=== PATIENT | male | born 1970 | race Caucasian/White ===

== ENCOUNTER 2016-07-13 00:53 | Emergency (ER) | payer BC ==
[~2016-07-13] VITALS: Ht 185.4 cm; Wt 111.1 kg
[~2016-07-13 00:53] MED LIST: LANS30CA10 PO
[2016-07-13 00:59] VITALS: BP 157/93; PULSE 91; RESP 14; TEMP 97.8; O2SAT 97
--- NOTE | 2016-07-13 01:04 | NUR ---
Patient to ER bed 6 to gown for evaluation. Side rails up. Report given to ZANDER WALKER.
--- NOTE | 2016-07-13 01:09 | NUR ---
Patient to ER C/O elevated BP at home. Patient states that in the past 2 days he has been checking his BP and is been high in the 170's SBP. Patient had monday lisinopril changed from QD to BID. Today patient to ER stating that his SBP was high. Denies pain, denies N/V/D/C, mild dizziness. AAOx4, unlabored breathing, no signs of acute distress.
--- NOTE | 2016-07-13 01:11 | NUR ---
ER MD Zhang at bedside for evaluation
--- NOTE | 2016-07-13 01:20 | NUR ---
# 20 gauge angiocath placed to left hand. Use of asceptic technique. Opsite placed over site. Blood return noted. Blood for lab drawn from site. Flushed with 10 cc of normal saline. No evidence of infiltration noted. Patient tolerated well.
[2016-07-13 01:34] LABS: BILIRUBIN,URINE NEGATIVE (NEGATIVE); BLOOD, URINE NEGATIVE (NEGATIVE); CLARITY/URINE CLEAR (CLEAR); COLOR,URINE YELLOW (YELLOW); GLUCOSE,URINE NEGATIVE (NEGATIVE); KETONES,URINE NEGATIVE (NEGATIVE); LEUKOCYTE ESTERASE ,URINE NEGATIVE (NEGATIVE); NITRITE, URINE NEGATIVE (NEGATIVE); PH,URINE 6.5 (5.0-8.0); PROTEIN URINE NEGATIVE (NEGATIVE); UROBILINOGEN,URINE 0.2 (0.2-1.0)
[2016-07-13 01:37] LABS: BASOPHILS % (AUTO) 0.6 % (0.0-2.0); EOSINOPHILS # (AUTO) 0.2 K/uL (0.0-0.4); EOSINOPHILS % (AUTO) 3.5 % (0.0-4.0); HEMATOCRIT 44.6 % (36-54); HEMOGLOBIN 15.1 g/dL (14.0-18.0); LYMPHOCYTES % (AUTO) 28.6 % (20.5-51.5); MEAN CORPUSCULAR HEMOGLOBIN 30 pg (27-31); MEAN CORPUSCULAR HGB CONC 34 % (32-36); MEAN CORPUSCULAR VOLUME 89 fL (79.0-98.0); MONOCYTES # (AUTO) 0.4 K/uL (0.0-1.0); MONOCYTES % (AUTO) 5.4 % (1.7-9.3); NEUTROPHILS # (AUTO) 4.3 K/uL (1.8-7.7); NEUTROPHILS % (AUTO) 61.9 % (40.0-70.0); PLATELET COUNT (AUTO) 196 K/uL (130-430); RED BLOOD CELL COUNT(AUTO) 5.03 MIL/uL (4.2-6.2); RED CELL DISTRIBUTION WIDTH 12.9 % (9.0-15.0); WHITE BLOOD COUNT (AUTO) 6.9 K/uL (4.8-10.8)
[2016-07-13 01:45] LABS: CALCIUM 8.9 mg/dL (8.4-11.0); CREATININE 1.26 mg/dL (0.55-1.30); POTASSIUM 3.7 mmol/L (3.5-5.1)
[2016-07-13 01:51] LABS: ALBUMIN 4.1 g/dL (3.4-4.8); TOTAL BILIRUBIN 0.8 mg/dL (0.0-1.0); TOTAL PROTEIN, SERUM 7.5 g/dL (6.4-8.3)
--- NOTE | 2016-07-13 02:35 | NUR ---
ER MD Zhang at bedside discussing BP home care.
[2016-07-13 02:47] VITALS: BP 136/87; PULSE 84; RESP 17; TEMP 98.1; O2SAT 95
--- NOTE | 2016-07-13 02:47 | NUR ---
Patient given written and verbal discharge instructions and verbalizes understanding. ER MD Zhang discussed with patient the results and treatment provided. Patient in stable condition. ID arm band removed. IV catheter removed intact and dressing applied, no active bleeding. Patient educated on pain management and to follow up with PMD. Pain Scale 0/10. Opportunity for questions provided and answered.
== END 2016-07-13 02:47 | disposition home or self-care (01) ==
LOC: SED 00:53
DX: I10 Essential (primary) hypertension (principal); R42 Dizziness and giddiness; K21.9 Gastro-esophageal reflux disease without esophagitis
CPT/HCPCS: 36415; 80053; 81003; 84484; 85025; 93005; 99285

== ENCOUNTER 2018-02-07 19:12 | Emergency (ER) | payer BC ==
[~2018-02-07] VITALS: Ht 185.4 cm; Wt 115.2 kg
[~2018-02-07 19:12] MED LIST changes: -LANS30CA10 PO; +LANS30CA53 PO
[2018-02-07 19:17] VITALS: BP_SYST 137
[2018-02-07 20:07] LABS: BASOPHILS # (AUTO) 0.1 K/uL (0.0-0.2); BASOPHILS % (AUTO) 0.9 % (0.0-2.0); EOSINOPHILS # (AUTO) 0.1 K/uL (0.0-0.4); HEMATOCRIT 44.1 % (36-54); HEMOGLOBIN 15.4 g/dL (14.0-18.0); LYMPHOCYTES # (AUTO) 1.7 K/uL (1.0-5.5); LYMPHOCYTES % (AUTO) 24.3 % (20.5-51.5); MEAN CORPUSCULAR HEMOGLOBIN 31 pg (27-31); MEAN CORPUSCULAR HGB CONC 35 % (32-36); MEAN CORPUSCULAR VOLUME 89 fL (79.0-98.0); MONOCYTES # (AUTO) 0.4 K/uL (0.0-1.0); MONOCYTES % (AUTO) 5.8 % (1.7-9.3); NEUTROPHILS # (AUTO) 4.7 K/uL (1.8-7.7); PLATELET COUNT (AUTO) 209 K/uL (130-430); RED BLOOD CELL COUNT(AUTO) 4.98 MIL/uL (4.2-6.2); RED CELL DISTRIBUTION WIDTH 12.7 % (9.0-15.0)
[2018-02-07 20:23] LABS: CALCIUM 9.1 mg/dL (8.4-11.0); CREATININE 1.09 mg/dL (0.55-1.30); POTASSIUM 4.1 mmol/L (3.5-5.1)
[2018-02-07 20:27] LABS: TOTAL BILIRUBIN 1.2 mg/dL (0.0-1.0)
[2018-02-07 20:30] LABS: INR 1.1 (0.80-1.20); PROTHROMBIN TIME 10.7 SECS (9.5-12.5)
[2018-02-07 20:49] LABS: BILIRUBIN,URINE NEGATIVE (NEGATIVE); BLOOD, URINE NEGATIVE (NEGATIVE); CLARITY/URINE CLEAR (CLEAR); COLOR,URINE YELLOW (YELLOW); GLUCOSE,URINE NEGATIVE (NEGATIVE); KETONES,URINE NEGATIVE (NEGATIVE); LEUKOCYTE ESTERASE ,URINE NEGATIVE (NEGATIVE); NITRITE, URINE NEGATIVE (NEGATIVE); PROTEIN URINE NEGATIVE (NEGATIVE); UROBILINOGEN,URINE 0.2 (0.2-1.0)
[2018-02-07] MEDS ORDERED: KETOROLAC TROMETHAMINE 15 MG VIAL IVP ONE (21:15)
[2018-02-07 22:14] VITALS: BP_SYST 131
== END 2018-02-07 22:14 | disposition home or self-care (01) ==
LOC: SED 19:12
DX: R07.9 Chest pain, unspecified (principal); K21.9 Gastro-esophageal reflux disease without esophagitis; I10 Essential (primary) hypertension
CPT/HCPCS: 36415; 71045; 80053; 81003; 83880; 84484; 85025; 85379; 85610; 85730; 93005; 96374; 99285; J1885

== ENCOUNTER 2018-08-22 20:46 | Observation (INO) | payer BC ==
[~2018-08-22] VITALS: Ht 185.4 cm; Wt 113.7 kg
[2018-08-22 20:52] VITALS: BP_SYST 150
--- NOTE | 2018-08-22 20:59 | NUR ---
Patient triaged and placed in waiting room. VSS and patient appears in no acute distress at this time. Accompanied by , awaiting available bed, and MD notified of need for MSE.
[2018-08-22] MEDS ORDERED: ASPIRIN 81 MG TAB.CHEW PO ONE (21:45)
--- NOTE | 2018-08-22 22:15 | NUR ---
Pt BIB family to ED C/O chest discomfort, stating that it started on previous monday with mild nausea and weakness progressively gotten worse. Pt went to Urgent care but issue did not resolve. EKG, blood draw and radiology done at triage. No other complaints or injuries noted or observed. Resting on gurney with rails up
[2018-08-22 22:26] LABS: HEMATOCRIT 44.4 % (36-54); HEMOGLOBIN 14.9 g/dL (14.0-18.0); MEAN CORPUSCULAR VOLUME 91 fL (79.0-98.0); WHITE BLOOD COUNT (AUTO) 7.6 K/uL (4.8-10.8)
[2018-08-22 22:27] LABS: BASOPHILS % (AUTO) 0.7 % (0.0-2.0); EOSINOPHILS # (AUTO) 0.2 K/uL (0.0-0.4); EOSINOPHILS % (AUTO) 2.3 % (0.0-4.0); LYMPHOCYTES # (AUTO) 2.1 K/uL (1.0-5.5); LYMPHOCYTES % (AUTO) 28.1 % (20.5-51.5); MEAN CORPUSCULAR HEMOGLOBIN 30 pg (27-31); MEAN CORPUSCULAR HGB CONC 34 % (32-36); MONOCYTES # (AUTO) 0.4 K/uL (0.0-1.0); MONOCYTES % (AUTO) 5.9 % (1.7-9.3); NEUTROPHILS # (AUTO) 4.8 K/uL (1.8-7.7); PLATELET COUNT (AUTO) 204 K/uL (130-430); RED CELL DISTRIBUTION WIDTH 13.4 % (9.0-15.0)
[2018-08-22 22:30] LABS: CALCIUM 9.2 mg/dL (8.4-11.0); CREATININE 1.02 mg/dL (0.55-1.30); POTASSIUM 4.3 mmol/L (3.5-5.1)
[2018-08-22 22:32] LABS: PROTHROMBIN TIME 10.4 SECS (9.5-12.5)
--- NOTE | 2018-08-22 22:33 | NUR ---
Placed in room 4 . Placed on electrical test engineer, blood pressure machine and pulse oximeter. To gown for exam. Side rails up.
[2018-08-22 22:35] LABS: TOTAL BILIRUBIN 0.8 mg/dL (0.0-1.0)
--- NOTE | 2018-08-23 | NUR ---
Pt VSS, no s/s of acute distress. Resting on gurney with rails up
--- NOTE | 2018-08-23 01:00 | NUR ---
Pt resting on gurney with rails up. Pt verbalize he is feeling ok.
[2018-08-23] MEDS ORDERED: PANT20TA2 PO (01:41)
[2018-08-23] MEDS ORDERED: LABE100T5 PO (01:41)
[2018-08-23] MEDS ORDERED: LISI-600 PO (01:41)
[2018-08-23 02:00] LABS: BILIRUBIN,URINE NEGATIVE (NEGATIVE); BLOOD, URINE NEGATIVE (NEGATIVE); CLARITY/URINE CLEAR (CLEAR); COLOR,URINE YELLOW (YELLOW); GLUCOSE,URINE NEGATIVE (NEGATIVE); KETONES,URINE NEGATIVE (NEGATIVE); LEUKOCYTE ESTERASE ,URINE NEGATIVE (NEGATIVE); NITRITE, URINE NEGATIVE (NEGATIVE); PH,URINE 6.5 (5.0-8.0); PROTEIN URINE NEGATIVE (NEGATIVE); UROBILINOGEN,URINE 0.2 (0.2-1.0)
[2018-08-23 02:08] LABS: BARBITURATE, URINE NEGATIVE (NEG <=200); BENZODIAZEPINE, URINE NEGATIVE (NEG <=150); CANNABINOID, URINE NEGATIVE (NEG <=50); COCAINE, URINE NEGATIVE (NEG <=150); METHAMPHETAMINES SCREEN,URINE NEGATIVE (NEG <=500); OPIATE, URINE NEGATIVE (NEG <=100); PHENCYCLIDINE SCREEN,URINE NEGATIVE (NEG <=25); URINE AMPHETAMINE NEGATIVE (NEG <=500); URINE METHADONE NEGATIVE (NEG <=200); URINE OXYCODONE SCREEN NEGATIVE (NEG <=100); URINE PROPOXYPHENE SCREEN NEGATIVE (NEG <=300)
[2018-08-23 02:09] LABS: UR TRICYCLIC ANTIDEPRESSANTS NEGATIVE (NEG <=300)
--- NOTE | 2018-08-23 02:50 | NUR ---
Patient will be admitted to care of Dr. Orantes. Admitted to Telemetry unit. Will go to room 122B. Belongings list completed. Summary report printed. Report will be given at bedside.
--- NOTE | 2018-08-23 02:50 | NUR ---
Transfer to Telemetry via ACLS protocol. Licensed nurse present. IV present no signs or symptoms of infiltration.
--- NOTE | 2018-08-23 02:50 | NUR ---
ADMISSION: The patient, TERRI LANGSTON, 47 y/o, M admitted by TAMERA LOPEZ MD, WITH THE DIAGNOSIS OF CHEST PAIN ,was given written information regarding hospital policies, unit procedures and contact persons.
[2018-08-23 03:02] VITALS: BP_SYST 129
--- NOTE | 2018-08-23 03:35 | NUR ---
OPENING NOTE RECEIVED ENDORSEMENT REPORT FROM ADMISSION NURSE ROMEL AT BEDSIDE. PT RESTING IN BED COMFORTABLY. PT IS AOX4. NO SOB NOTED. NO DISTRESS NOTED. NO S/S OF PAIN NOTED. PT DENIES PAIN AT THIS TIME. IV ON LEFT WRIST 20G. IV CLEAN DRY AND INTACT. PT ORIENTED TO HOSPITAL ROOM. PT INSTRUCTED HOW TO USE CALL LIGHT AND ROOM PHONE. PT VERBALIZED UNDERSTANDING. SAFETY MEASURES IN PLACE. CALL LIGHT/ROOM PHONE WITHIN REACH, BED WHEELS LOCKED, BED IN LOWEST POSITION, BED RAILS UP X 2, BED ALARM ON. NO OTHER NEEDS AT THIS TIME. WILL CONTINUE TO MONITOR PT AND CONTINUE POC.
--- NOTE | 2018-08-23 04:40 | NUR ---
RN ROUNDS PT RESTING IN BED COMFORTABLY WITH EYES CLOSED. NO SOB NOTED. NO DISTRESS NOTED. NO S/S OF PAIN NOTED. SAFETY MEASURES IN PLACE. WILL CONTINUE TO MONITOR PT AND CONTINUE POC.
--- NOTE | 2018-08-23 06:10 | NUR ---
RN ROUNDS PT RESTING IN BED COMFORTABLY WITH EYES CLOSED. NO SOB NOTED. NO DISTRESS NOTED. NO S/S OF PAIN NOTED. NO NEEDS AT THIS TIME. SAFETY MEASURES IN PLACE. WILL CONTINUE TO MONITOR PT AND CONTINUE POC
--- NOTE | 2018-08-23 06:54 | NUR ---
CLOSING NOTE PT RESTING IN BED COMFORTABLY. PT IS AOX4. NO SOB NOTED. NO DISTRESS NOTED. NO S/S OF PAIN NOTED. PT DENIES PAIN AT THIS TIME. ALL NEEDS MET THROUGHOUT SHIFT. ALL SCHEDULED MEDICATIONS ADMINISTERED ORDERED. NO FURTHER NEEDS AT THIS TIME. SAFETY MEASURES IN PLACE. WILL ENDORSE PT CARE TO DAY NURSE AT BEDSIDE.
--- NOTE | 2018-08-23 07:35 | NUR ---
Opening Note: Patient in bed resting. Patient denies chest pin and discomfort. Breathing is even and unlabored with no distress noted. IV patent and intact and saline locked. Safety precautions in place and call light within reach. No needs at this time. Will continue to monitor.
[2018-08-23 08:55] VITALS: BP_SYST 129
--- NOTE | 2018-08-23 08:56 | NUR ---
CONSULTATION PAGED REASON FOR CONSULTATION:CHEST PAIN WAS CONSULT CALLED?Y PERSON WHO WAS NOTIFIED:[facility] CONSULTING PHYSICIAN:KAMARI MCGUIRE DEMAND PLANNING ANALYST SPECIALTY:CARDIO DEMAND PLANNING ANALYST PHONE NUMBER:[phone] REQUESTING PHYSICIAN:ZITA MONTOYA
[2018-08-23] MEDS ORDERED: MORPHINE 4 MG/ML INJ. SYRINGE IVP PRN ×2 (09:00)
[2018-08-23] MEDS ORDERED: ONDANSETRON HCL 4 MG/2 ML VIAL IVP PRN (09:00)
[2018-08-23] MEDS ORDERED: ASPIRIN 325 MG TABLET (ECOTRIN) PO ONE (09:00)
[2018-08-23] MEDS ORDERED: LABETALOL HCL 100 MG TABLET PO SCH (09:00)
[2018-08-23] MEDS ORDERED: LISINOPRIL 20 MG TABLET PO SCH (09:00)
[2018-08-23] MEDS ORDERED: ALBUTEROL SULFATE 0.083% 2.5 MG/3 ML VIAL.NEB INH PRN (09:00)
[2018-08-23 11:13] LABS: THYROID STIMULATING HORMONE 1.69 uIu/mL (0.36-3.74)
--- NOTE | 2018-08-23 12:09 | NUR ---
Rounds: Patient in bed resting. Patient denies chest pain and discomfort. Breathing is even and unlabored with no distress noted. Morning medications tolerated well. Safety precautions in place and call light within reach. No needs at this time. Will continue to monitor.
[2018-08-23 12:45] VITALS: BP_SYST 125
[2018-08-23] MEDS ORDERED: PANTOPRAZOLE SODIUM 40 MG TAB PO SCH (14:00)
[2018-08-23] MEDS ORDERED: PANTOPRAZOLE SODIUM 40 MG TAB PO ONE (14:45)
--- NOTE | 2018-08-23 16:08 | NUR ---
Rounds: Patient in bed resting. Patient denies chest pain and discomfort. Breathing is even and unlabored with no distress noted. Safety precautions in place and call light within reach. No needs at this time. Will continue to monitor.
[2018-08-23 16:36] VITALS: BP_SYST 125
[2018-08-23 17:00] VITALS: BP_SYST 125
[2018-08-23 17:47] VITALS: BP_SYST 125
[2018-08-24] MEDS ORDERED: ASPIRIN 325 MG TABLET (ECOTRIN) PO SCH (09:00)
== END 2018-08-23 18:02 | disposition home or self-care (01) ==
LOC: SED 20:46 → STU 08-23 02:16
PROVIDERS: ADMIT Internal Medicine; ATTEND Internal Medicine
DX: R07.9 Chest pain, unspecified (principal); I10 Essential (primary) hypertension; E66.9 Obesity, unspecified; K21.9 Gastro-esophageal reflux disease without esophagitis
CPT/HCPCS: 36415 ×2; 71045; 80053; 80061; 80307; 81003; 82550; 83880; 84443; 84484 ×2; 85025; 85379; 85610; 93005; 93306; 99285; G0378

== ENCOUNTER 2021-02-05 18:12 | Emergency (ER) | payer OTHER, BC ==
[~2021-02-05] VITALS: Ht 185.4 cm; Wt 113.4 kg
[2021-02-05 18:42] VITALS: BP_SYST 150
--- NOTE | 2021-02-05 18:45 | NUR ---
CHOLO AND ASKED TO WAIT IN THE WAITING ROOM
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
--- NOTE | 2021-02-05 18:51 | NUR ---
ER at bedside examining patient.
[2021-02-05] MEDS ORDERED: NAPR-690 PO (18:57)
[2021-02-05 20:30] VITALS: BP_SYST 142
--- NOTE | 2021-02-05 20:30 | NUR ---
Patient given written and verbal discharge instructions and verbalizes understanding. ER MD discussed with patient the results and treatment provided. Patient in stable condition. ID arm band removed. Rx of Naproxen given. Patient educated on pain management and to follow up with PMD. Pain Scale 0/10 Opportunity for questions provided and answered. Medication side effect fact sheet provided.
== END 2021-02-05 20:30 | disposition home or self-care (01) ==
LOC: SED 18:12
DX: S33.9XXA Sprain of unspecified parts of lumbar spine and pelvis, initial encounter (principal); I10 Essential (primary) hypertension; K21.9 Gastro-esophageal reflux disease without esophagitis; Z79.899 Other long term (current) drug therapy; V49.49XA Driver injured in collision with other motor vehicles in traffic accident, initial encounter; Y93.89 Activity, other specified; Y92.89 Other specified places as the place of occurrence of the external cause; Y99.8 Other external cause status
CPT/HCPCS: 72040-TC; 72100-TC; 99284